=== PATIENT | male | born 1960 ===

== ENCOUNTER 2023-06-17 10:51 | Outpatient (RCR) | payer OTHER, SELFPAY ==
[2023-06-01 12:48] LABS: Glucose - Point of Care 124 mg/dl (70-99)
[2023-06-01 13:21] LABS: Glucose - Point of Care 97 mg/dl (70-99)
[2023-06-01 13:40] LABS: Glucose - Point of Care 134 mg/dl (70-99)
[2023-06-03 10:18] LABS: Glucose - Point of Care 98 mg/dl (70-99)
[2023-06-03 10:32] LABS: Glucose - Point of Care 114 mg/dl (70-99)
[2023-06-03 11:29] LABS: Glucose - Point of Care 145 mg/dl (70-99)
[2023-06-08 10:31] LABS: Glucose - Point of Care 157 mg/dl (70-99)
[2023-06-08 11:22] LABS: Glucose - Point of Care 108 mg/dl (70-99)
[2023-06-15 09:51] LABS: Glucose - Point of Care 127 mg/dl (70-99)
[2023-06-15 10:41] LABS: Glucose - Point of Care 124 mg/dl (70-99)
[2023-06-17 10:23] LABS: Glucose - Point of Care 154 mg/dl (70-99)
[2023-06-17 11:23] LABS: Glucose - Point of Care 135 mg/dl (70-99)
== END 2023-06-17 23:59 | disposition home or self-care (01) ==
LOC: CRHB 10:51
PROVIDERS: ATTENDING PHYSICIAN Internal Medicine Cardiovascular Disease; PRIMARYCARE PHYSICIAN Family Medicine
DX: Z94.1 Heart transplant status (principal); N18.9 Chronic kidney disease, unspecified
CPT/HCPCS: 82962; G0422; G0423

== ENCOUNTER 2023-07-20 09:30 | Outpatient (RCR) | payer OTHER, SELFPAY ==
[2023-06-22 10:34] LABS: Glucose - Point of Care 178 mg/dl (70-99)
[2023-06-22 11:30] LABS: Glucose - Point of Care 118 mg/dl (70-99)
[2023-06-24 10:16] LABS: Glucose - Point of Care 283 mg/dl (70-99)
[2023-06-24 11:10] LABS: Glucose - Point of Care 153 mg/dl (70-99)
[2023-06-29 10:33] LABS: Glucose - Point of Care 134 mg/dl (70-99)
[2023-06-29 11:35] LABS: Glucose - Point of Care 119 mg/dl (70-99)
[2023-07-06 10:34] LABS: Glucose - Point of Care 144 mg/dl (70-99)
[2023-07-06 11:43] LABS: Glucose - Point of Care 122 mg/dl (70-99)
[2023-07-08 10:13] LABS: Glucose - Point of Care 122 mg/dl (70-99)
[2023-07-08 11:12] LABS: Glucose - Point of Care 96 mg/dl (70-99)
[2023-07-08 11:28] LABS: Glucose - Point of Care 132 mg/dl (70-99)
[2023-07-13 10:35] LABS: Glucose - Point of Care 149 mg/dl (70-99)
[2023-07-13 11:31] LABS: Glucose - Point of Care 116 mg/dl (70-99)
[2023-07-15 10:17] LABS: Glucose - Point of Care 140 mg/dl (70-99)
[2023-07-15 11:19] LABS: Glucose - Point of Care 97 mg/dl (70-99)
[2023-07-15 11:28] LABS: Glucose - Point of Care 104 mg/dl (70-99)
== END 2023-07-20 23:59 | disposition home or self-care (01) ==
LOC: CRHB 09:30
PROVIDERS: ATTENDING PHYSICIAN Internal Medicine Cardiovascular Disease; FAMILY PHYSICIAN Family Medicine
DX: Z94.1 Heart transplant status (principal)
CPT/HCPCS: 82962; G0422; G0423

== ENCOUNTER 2023-08-19 10:38 | Outpatient (RCR) | payer OTHER, SELFPAY ==
[2023-07-22 10:22] LABS: Glucose - Point of Care 146 mg/dl (70-99)
[2023-07-22 11:20] LABS: Glucose - Point of Care 116 mg/dl (70-99)
[2023-07-27 10:27] LABS: Glucose - Point of Care 126 mg/dl (70-99)
[2023-07-27 11:30] LABS: Glucose - Point of Care 126 mg/dl (70-99)
[2023-08-03 10:26] LABS: Glucose - Point of Care 133 mg/dl (70-99)
[2023-08-03 11:35] LABS: Glucose - Point of Care 114 mg/dl (70-99)
[2023-08-05 10:16] LABS: Glucose - Point of Care 153 mg/dl (70-99)
[2023-08-05 11:22] LABS: Glucose - Point of Care 148 mg/dl (70-99)
[2023-08-10 10:34] LABS: Glucose - Point of Care 136 mg/dl (70-99)
[2023-08-10 11:34] LABS: Glucose - Point of Care 106 mg/dl (70-99)
[2023-08-12 10:15] LABS: Glucose - Point of Care 148 mg/dl (70-99)
[2023-08-12 11:20] LABS: Glucose - Point of Care 125 mg/dl (70-99)
== END 2023-08-19 23:59 | disposition home or self-care (01) ==
LOC: CRHB 10:38
PROVIDERS: ATTENDING PHYSICIAN Internal Medicine Cardiovascular Disease; FAMILY PHYSICIAN Family Medicine
DX: Z94.1 Heart transplant status (principal)
CPT/HCPCS: 82962; G0422; G0423

== ENCOUNTER 2023-09-10 16:52 | Outpatient (RCR) | payer OTHER, SELFPAY | END 2023-09-10 23:59 | disposition home or self-care (01) | LOC: CRHB 16:52 | PROVIDERS: ATTENDING PHYSICIAN Internal Medicine Cardiovascular Disease; FAMILY PHYSICIAN Family Medicine | DX: Z94.1 Heart transplant status (principal) | CPT/HCPCS: G0422; G0423 ==

== ENCOUNTER 2023-09-28 11:19 | Outpatient (RCR) | payer OTHER, SELFPAY | END 2023-09-28 23:59 | disposition home or self-care (01) | LOC: CRHB 11:19 | PROVIDERS: ATTENDING PHYSICIAN Internal Medicine Cardiovascular Disease | DX: Z94.1 Heart transplant status (principal) | CPT/HCPCS: G0422; G0423 ==